=== PATIENT | female | born 2000 | race African-American/Black ===

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

== ENCOUNTER 2021-03-17 17:38 | Emergency (ER) | payer BC, OTHER ==
[~2021-03-17] VITALS: Ht 162.6 cm; Wt 68.2 kg
[2021-03-17 17:41] VITALS: BP 108/56
[2021-03-17] MEDS ORDERED: FERR236T3 PO (17:46)
== END 2021-03-17 18:54 | disposition home or self-care (01) ==
LOC: EMS 17:43
DX: Z20.822 Contact with and (suspected) exposure to COVID-19 (principal)
CPT/HCPCS: 99283; U0003